=== PATIENT | female | born 1945 | race Two or more races ===

== ENCOUNTER 2016-12-13 23:10 | Inpatient (IN) | payer MEDICAID ==
[~2016-12-13] VITALS: Ht 152.4 cm; Wt 122.1 kg
[2016-12-13] MEDS ORDERED: cloNIDine HCL 0.1 MG TAB PO ONE (23:30)
[2016-12-13 23:42] LABS: DEFINITIVE SEE PRINTOUT; Hematocrit 43.5 % (36.0-46.0); Hemoglobin 14.2 g/dL (12.2-16.2); Mean Corpuscular Hemoglobin 30.4 pg (28.0-32.0); Mean Corpuscular Hgb Conc. 32.6 g/dL (32.0-36.0); Mean Corpuscular Volume 93.2 fL (80.0-100.0); Mean Platelet Volume 7.7 fL (7.4-10.4); Platelet Count (auto) 263 10^3/uL (140-450); Red Cell Distribution Width 14.5 % (11.6-16.0); SUSPECT SEE PRINTOUT; White Blood Cell 17.6 10^3/uL (4.4-10.8)
[2016-12-14] LABS: Reactive Lymphocytes 0
[2016-12-14 00:03] LABS: INR 1.23 (0.9-1.15); Partial Thromboplastin Time 31.5 sec (22.64-33.71)
[2016-12-14 00:04] LABS: Albumin 3.3 g/dL (3.4-5.0); Anion Gap 11 (5-15); Aspartate Aminotransferase 27 U/L (15-37); BUN/Creatinine Ratio 18.3; Blood Urea Nitrogen 28 mg/dL (7-18); Calcium 8.5 mg/dL (8.5-10.1); Carbon Dioxide 21 mmol/L (21-32); Chloride 107 mmol/L (98-107); GFR African American 43 mL/min; GFR Non-African American 36 mL/min; Glucose 147 mg/dL (74-106); Magnesium 1.8 mg/dL (1.6-2.6); Potassium 4.1 mmol/L (3.5-5.1); Sodium 139 mmol/L (136-145)
[2016-12-14 00:09] LABS: Alkaline Phosphatase 105 U/L (45-117); Bilirubin, Total 0.5 mg/dL (0.2-1.0); Total Protein 8.1 g/dL (6.4-8.2)
[2016-12-14 00:11] LABS: Prothrombin Time 13.4 sec (9.37-12.3)
[2016-12-14 00:46] LABS: Metamyelocytes % 7; Myelocytes % 6; Platelet Estimate Adequate; Promyelocytes % 1; RBC Morphology Normal
[2016-12-14 05:59] LABS: Urine Bilirubin Negative (Negative); Urine Blood TRACE /uL (Negative); Urine Color Yellow (Yellow); Urine Glucose Normal (Normal); Urine Granular Cast FEW /lpf (0); Urine Hyaline Cast FEW /lpf (0 - 2); Urine Ketone Negative (Negative); Urine Mucus FEW (None Seen); Urine Nitrite Negative (Negative); Urine RBC 2 /hpf (0 - 4); Urine Squamous Epithelial Cell MOD /hpf (<5); Urine Urobilinogen Normal (Negative)
[2016-12-14] MEDS ORDERED: SODIUM CHLORIDE 0.9% 1,000 ML IV ONE ×2 (06:39)
[2016-12-14] MEDS ORDERED: ACETAMINOPHEN 325 MG TAB PO ONE (06:45)
[2016-12-14] MEDS ORDERED: LEVOFLOXACIN 500MG 100 ML IV ONE (06:45)
[2016-12-14] MEDS: SODIUM CHLORIDE 0.9% 1,000 ML IV SCH ×2 (08:30→21:00)
[2016-12-14] MEDS ORDERED: ACETAMINOPHEN 500 MG TAB PO PRN (09:15)
[2016-12-14] MEDS ORDERED: amLODIPine BESYLATE 5 MG TAB PO ONE (09:15)
[2016-12-14] MEDS ORDERED: PROMETHAZINE HCL 25 MG/ML 1ML IV PRN (09:15)
[2016-12-14] MEDS ORDERED: HYDROcodone-ACET 5/325MG TAB PO PRN (09:15)
[2016-12-14] MEDS ORDERED: TEMAZEPAM 15 MG CAP PO PRN (09:15)
[2016-12-14] MEDS ORDERED: DEXTROSE (50%) 50ML SYRG IV PRN (09:15)
[2016-12-14] MEDS ORDERED: cefTRIAXone 1GM/50ML D5W 50 ML IV ONE (09:15)
[2016-12-14] MEDS ORDERED: MORPHINE SULF INJ 2 MG/ML SYRINGE 1ML IV PRN ×2 (09:15)
[2016-12-14] MEDS ORDERED: LABETALOL HCL 5 MG/ML 4ML SYRINGE IV PRN ×2 (09:15)
[2016-12-14] MEDS ORDERED: NITROGLYCERIN 0.4 MG SL TAB SL PRN (09:15)
[2016-12-14] MEDS: ENALAPRIL MALEATE 2.5 MG TAB PO SCH ×2 (10:00→22:16)
[2016-12-14] MEDS: PANTOPRAZOLE 40 MG TAB PO SCH (10:00)
[2016-12-14] MEDS: amLODIPine BESYLATE 5 MG TAB PO SCH (10:00)
[2016-12-14] MEDS: ACCU-CHEK COMFORT CURVE STRIP VI SCH ×3 (11:38→22:16)
[2016-12-14] MEDS: InsuLIN REG 1unit/0.01ml Soln (100units/ml) SC SCH ×3 (11:43→22:24)
[2016-12-14] MEDS ORDERED: METO-291 PO (16:34)
[2016-12-14] MEDS ORDERED: RIV20T PO (16:34)
[2016-12-14] MEDS ORDERED: LOSA100T27 PO (16:34)
[2016-12-14] MEDS ORDERED: CHLO50TA PO (16:34)
[2016-12-14] MEDS ORDERED: GABA-497 PO (16:34)
[2016-12-14] MEDS ORDERED: ATOR1TAB PO (16:34)
[2016-12-14] MEDS ORDERED: MELO-85 PO (19:37)
[2016-12-14 20:00] VITALS: BP 113/55
[2016-12-14 22:00] VITALS: BP 113/55
[2016-12-15] VITALS (8 sets, daily range): BP systolic 116–171; BP diastolic 68–86
[2016-12-15] MEDS: ACCU-CHEK COMFORT CURVE STRIP VI SCH ×4 (06:26→22:06)
[2016-12-15] MEDS: InsuLIN REG 1unit/0.01ml Soln (100units/ml) SC SCH ×4 (06:31→22:08)
[2016-12-15] MEDS: SODIUM CHLORIDE 0.9% 1,000 ML IV SCH ×2 (06:53→15:05)
[2016-12-15 07:00] LABS: CONDITION Y; DEFINITIVE SEE PRINTOUT; Hematocrit 34.8 % (36.0-46.0); Hemoglobin 11.6 g/dL (12.2-16.2); Mean Corpuscular Hemoglobin 31.5 pg (28.0-32.0); Mean Corpuscular Hgb Conc. 33.3 g/dL (32.0-36.0); Mean Corpuscular Volume 94.6 fL (80.0-100.0); Mean Platelet Volume 8.5 fL (7.4-10.4); Platelet Count (auto) 259 10^3/uL (140-450); Red Cell Distribution Width 16.3 % (11.6-16.0); White Blood Cell 10.3 10^3/uL (4.4-10.8)
[2016-12-15 07:10] LABS: Metamyelocytes % 0; Myelocytes % 0; Promyelocytes % 0; Reactive Lymphocytes 0
[2016-12-15 07:18] LABS: Albumin 2.6 g/dL (3.4-5.0); BUN/Creatinine Ratio 21.2; Bilirubin, Total 0.5 mg/dL (0.2-1.0); Calcium 8.2 mg/dL (8.5-10.1); Potassium 4.1 mmol/L (3.5-5.1); Total Protein 6.4 g/dL (6.4-8.2)
[2016-12-15 07:36] LABS: Platelet Estimate Adequate; RBC Morphology Normal
[2016-12-15] MEDS: cefTRIAXone 1GM/50ML D5W 50 ML IV SCH (09:00)
[2016-12-15] MEDS: ENALAPRIL MALEATE 2.5 MG TAB PO SCH ×2 (09:36→21:57)
[2016-12-15] MEDS: PANTOPRAZOLE 40 MG TAB PO SCH (09:36)
[2016-12-15] MEDS: amLODIPine BESYLATE 5 MG TAB PO SCH (09:38)
[2016-12-16] MEDS: SODIUM CHLORIDE 0.9% 1,000 ML IV SCH ×3 (04:13→21:05)
[2016-12-16 05:44] LABS: Basophils # (auto) 0 uL; Basophils % (auto) 0.5 % (0.0-2.0); CONDITION Y; DEFINITIVE SEE PRINTOUT; Eosinophils % (auto) 12.7 % (0.0-7.0); Hematocrit 38.1 % (36.0-46.0); Hemoglobin 12.7 g/dL (12.2-16.2); Lymphocytes # (auto) 0.7 uL; Lymphocytes % (auto) 8.7 % (10.0-50.0); Mean Corpuscular Hemoglobin 31.3 pg (28.0-32.0); Mean Corpuscular Hgb Conc. 33.4 g/dL (32.0-36.0); Mean Corpuscular Volume 93.7 fL (80.0-100.0); Mean Platelet Volume 8.4 fL (7.4-10.4); Monocytes # (auto) 0.7 uL; Monocytes % (auto) 8.5 % (0.0-12.0); Neutrophils # (auto) 5.5 uL; Neutrophils % (auto) 69.6 % (37.0-80.0); Platelet Count (auto) 284 10^3/uL (140-450); White Blood Cell 7.9 10^3/uL (4.4-10.8)
[2016-12-16 06:14] LABS: Albumin 3.1 g/dL (3.4-5.0); BUN/Creatinine Ratio 16.1; Calcium 8.4 mg/dL (8.5-10.1)
[2016-12-16 06:17] LABS: Bilirubin, Total 0.6 mg/dL (0.2-1.0); Total Protein 7.3 g/dL (6.4-8.2)
[2016-12-16] MEDS: LABETALOL HCL 5 MG/ML 4ML SYRINGE IV PRN ×2 (06:21→12:00)
[2016-12-16] MEDS: ACCU-CHEK COMFORT CURVE STRIP VI SCH ×4 (06:31→22:10)
[2016-12-16] MEDS: InsuLIN REG 1unit/0.01ml Soln (100units/ml) SC SCH ×4 (06:33→22:10)
[2016-12-16 08:00] VITALS: BP 136/86
[2016-12-16] MEDS: cefTRIAXone 1GM/50ML D5W 50 ML IV SCH (09:10)
[2016-12-16] MEDS: LORazepam 0.5 MG TAB PO PRN ×2 (09:15→22:09)
[2016-12-16 10:04] VITALS: BP 136/86
[2016-12-16] MEDS: CITALOPRAM HYDROBR 20 MG TAB PO SCH (10:31)
[2016-12-16] MEDS: PANTOPRAZOLE 40 MG TAB PO SCH (10:32)
[2016-12-16] MEDS: amLODIPine BESYLATE 5 MG TAB PO SCH (10:32)
[2016-12-16] MEDS: ENALAPRIL MALEATE 2.5 MG TAB PO SCH ×2 (10:33→22:10)
[2016-12-16 14:37] VITALS: BP 195/101
[2016-12-16 17:28] VITALS: BP 149/78
[2016-12-16 20:00] VITALS: BP 150/82
[2016-12-16 22:00] VITALS: BP 154/82
[2016-12-17 05:26] VITALS: BP 161/73
[2016-12-17 05:57] LABS: BUN/Creatinine Ratio 13.2; Calcium 8.9 mg/dL (8.5-10.1)
[2016-12-17] MEDS: ACCU-CHEK COMFORT CURVE STRIP VI SCH ×2 (06:46→11:30)
[2016-12-17] MEDS: InsuLIN REG 1unit/0.01ml Soln (100units/ml) SC SCH ×2 (06:47→11:30)
[2016-12-17] MEDS: SODIUM CHLORIDE 0.9% 1,000 ML IV SCH (07:05)
[2016-12-17 08:00] VITALS: BP 139/67
[2016-12-17 08:24] VITALS: BP 139/68
[2016-12-17] MEDS: cefTRIAXone 1GM/50ML D5W 50 ML IV SCH (08:51)
[2016-12-17] MEDS: ENALAPRIL MALEATE 2.5 MG TAB PO SCH (10:13)
[2016-12-17] MEDS: PANTOPRAZOLE 40 MG TAB PO SCH (10:14)
[2016-12-17] MEDS: amLODIPine BESYLATE 5 MG TAB PO SCH (10:14)
[2016-12-17] MEDS: CITALOPRAM HYDROBR 20 MG TAB PO SCH (10:17)
[2016-12-17 11:00] VITALS: BP 139/68
== END 2016-12-17 12:00 | disposition home or self-care (01) | DRG 720 ==
LOC: EDBD 23:10 → ER 23:10 → TELE 23:11 → EAST 12-14 15:24 → TELE-WESTW 12-14 18:52
PROVIDERS: ADMIT Internal Medicine; ATTEND Internal Medicine
DX: A41.9 Sepsis, unspecified organism (principal); N17.9 Acute kidney failure, unspecified; D68.9 Coagulation defect, unspecified; E11.21 Type 2 diabetes mellitus with diabetic nephropathy; N18.3 Chronic kidney disease, stage 3 (moderate); E44.0 Moderate protein-calorie malnutrition; N39.0 Urinary tract infection, site not specified; I12.9 Hypertensive chronic kidney disease with stage 1 through stage 4 chronic kidney disease, or unspecified chronic kidney disease; E78.5 Hyperlipidemia, unspecified; K29.50 Unspecified chronic gastritis without bleeding; E66.01 Morbid (severe) obesity due to excess calories; M19.90 Unspecified osteoarthritis, unspecified site; I16.0 Hypertensive urgency; N28.1 Cyst of kidney, acquired; E11.22 Type 2 diabetes mellitus with diabetic chronic kidney disease; F32.9 Major depressive disorder, single episode, unspecified; E11.40 Type 2 diabetes mellitus with diabetic neuropathy, unspecified; Z83.3 Family history of diabetes mellitus; Z98.51 Tubal ligation status; Z68.43 Body mass index [BMI] 50.0-59.9, adult
CPT/HCPCS: 36415; 71010; 74176; 76775; 80048; 80053; 81001; 82962; 83036; 83605; 83735; 84484; 85007; 85025; 85027; 85610; 85652; 85730; 87040; 87086; 93005; 96365; 96366; 96375; J0696; J1815; J1956; J3490

== ENCOUNTER 2021-08-25 11:50 | Inpatient (IN) | payer MEDICAID ==
[~2021-08-25] VITALS: Ht 121.9 cm; Wt 120.9 kg
[~2021-08-25 11:50] MED LIST: ATOR-47 PO; CHLO50TA PO; GABA300C10 PO; LOSA-39 PO; MELO1TAB73 PO; METO1TAB9 PO; RIV20T PO
[2021-08-25] MEDS ORDERED: FUROSEMIDE 40 MG/4 ML VIAL IV ONE (12:15)
[2021-08-25] MEDS ORDERED: FURO40TA4 PO (12:42)
[2021-08-25] MEDS ORDERED: AMLO-489 PO (12:42)
[2021-08-25] MEDS ORDERED: HYDR25TA4 PO (12:42)
[2021-08-25] MEDS ORDERED: DOXA1TAB42 PO (12:42)
[2021-08-25 13:32] LABS: Basophils # (auto) 0.1 10 ^3/uL (0-0.2); Basophils % (auto) 1.7 % (0.0-2.0); Eosinophils # (auto) 0.1 10 ^3/uL (0-0.8); Eosinophils % (auto) 2.3 % (0.0-7.0); Hematocrit 38.4 % (36.0-46.0); Hemoglobin 12.8 g/dL (12.2-16.2); Lymphocytes # (auto) 0.7 10 ^3/uL (0.4-5.4); Lymphocytes % (auto) 10.5 % (10.0-50.0); Mean Corpuscular Hemoglobin 31.9 pg (28.0-32.0); Mean Corpuscular Hgb Conc. 33.4 g/dL (32.0-36.0); Mean Corpuscular Volume 95.6 fL (80.0-100.0); Monocytes # (auto) 0.5 10 ^3/uL (0-1.3); Monocytes % (auto) 7.6 % (0.0-12.0); Neutrophils # (auto) 5.1 10 ^3/uL (1.6-8.6); Neutrophils % (auto) 77.9 % (37.0-80.0); Nucleated Red Blood Cells % 0.1 %; Red Blood Cells 4.02 10^6/uL (4.0-5.20); Red Cell Distribution Width 14.8 % (11.8-14.3); White Blood Cell 6.5 10^3/uL (4.4-10.8)
[2021-08-25 13:47] LABS: INR 0.98 (0.9-1.15); Partial Thromboplastin Time 22.7 sec (23.6-33.0)
[2021-08-25 13:52] LABS: Albumin 2.7 g/dL (3.4-5.0); Calcium 8.5 mg/dL (8.5-10.1); Potassium 4.1 mmol/L (3.5-5.1)
[2021-08-25 13:59] LABS: BUN/Creatinine Ratio 22.7; Bilirubin, Total 0.3 mg/dL (0.2-1.0)
[2021-08-25] MEDS ORDERED: DOCUSATE SOD 100 MG CAP PO PRN (16:30)
[2021-08-25] MEDS ORDERED: DEXTROSE (50%) 50ML SYRG IV PRN (16:30)
[2021-08-25] MEDS ORDERED: ACETAMINOPHEN 325 MG TAB PO PRN (16:30)
[2021-08-25] MEDS ORDERED: MORPHINE SULFATE INJECTION 2 MG/ML SYRG IV PRN (16:30)
[2021-08-25] MEDS ORDERED: ONDANSETRON HCL 4 MG/2 ML VIAL IV PRN (16:30)
[2021-08-25] MEDS ORDERED: NITROGLYCERIN 0.4 MG SL TAB SL PRN (16:30)
[2021-08-25] MEDS: InsuLIN REG 1unit/0.01ml Soln (100units/ml) SC SCH ×2 (17:00→21:15)
[2021-08-25] MEDS: ACCU-CHEK COMFORT CURVE STRIP VI SCH ×2 (17:21→21:13)
[2021-08-25] MEDS: RIVAROXABAN 20 MG TAB PO SCH (18:53)
[2021-08-25] MEDS: FUROSEMIDE 40 MG TAB PO SCH (18:53)
[2021-08-25] MEDS: HYDROcodone-ACET 5/325MG TAB PO PRN (19:49)
[2021-08-25] MEDS: TEMAZEPAM 15 MG CAP PO PRN (21:12)
[2021-08-25] MEDS: ATORVASTATIN 20 MG TAB PO SCH (21:12)
[2021-08-25] MEDS: DOXAZOSIN MESYL 2 MG TAB PO SCH (21:25)
[2021-08-25 22:00] VITALS: BP 117/57
[2021-08-25 22:18] LABS: Urine Bacteria NONE SEEN /hpf (None Seen); Urine Blood 1+ /uL (Negative); Urine Specific Gravity 1.007 (1.001-1.035); Urine WBC 1 /hpf (0 - 5)
[2021-08-26 05:00] VITALS: BP 110/57
[2021-08-26 06:01] LABS: Basophils # (auto) 0.1 10 ^3/uL (0-0.2); Basophils % (auto) 0.9 % (0.0-2.0); Eosinophils # (auto) 0.2 10 ^3/uL (0-0.8); Eosinophils % (auto) 3.5 % (0.0-7.0); Hematocrit 33.5 % (36.0-46.0); Hemoglobin 11.7 g/dL (12.2-16.2); Lymphocytes # (auto) 0.6 10 ^3/uL (0.4-5.4); Lymphocytes % (auto) 9.3 % (10.0-50.0); Mean Corpuscular Hemoglobin 32.9 pg (28.0-32.0); Mean Corpuscular Hgb Conc. 34.8 g/dL (32.0-36.0); Mean Corpuscular Volume 94.5 fL (80.0-100.0); Monocytes # (auto) 0.7 10 ^3/uL (0-1.3); Monocytes % (auto) 10.1 % (0.0-12.0); Neutrophils % (auto) 76.2 % (37.0-80.0); Red Blood Cells 3.55 10^6/uL (4.0-5.20); Red Cell Distribution Width 14.5 % (11.8-14.3); White Blood Cell 6.6 10^3/uL (4.4-10.8)
[2021-08-26] MEDS: FUROSEMIDE 40 MG TAB PO SCH ×2 (06:07→17:38)
[2021-08-26] MEDS: ACCU-CHEK COMFORT CURVE STRIP VI SCH ×4 (06:14→21:57)
[2021-08-26] MEDS: InsuLIN REG 1unit/0.01ml Soln (100units/ml) SC SCH ×4 (06:15→21:52)
[2021-08-26 06:18] LABS: Potassium 3.7 mmol/L (3.5-5.1)
[2021-08-26 06:22] LABS: Cholesterol 211 mg/dL (< 200); HDL Cholesterol 51 mg/dL (40-59); LDL Cholesterol 128 mg/dL (< 100); Triglycerides 207 mg/dL (< 150)
[2021-08-26 06:33] LABS: Albumin 2.8 g/dL (3.4-5.0); Bilirubin, Total 0.5 mg/dL (0.2-1.0); Calcium 9.1 mg/dL (8.5-10.1); Total Protein 5.9 g/dL (6.4-8.2)
[2021-08-26 08:05] VITALS: BP 116/47
[2021-08-26] MEDS: GABAPENTIN 300 MG CAP PO SCH (09:20)
[2021-08-26] MEDS: METOPROLOL SUCCINATE XL 50 MG TAB PO SCH (09:20)
[2021-08-26] MEDS: LOSARTAN POTASSIUM 50 MG TAB PO SCH (09:20)
[2021-08-26] MEDS: MORPHINE SULFATE 4 MG/ML SYR/VIAL IV PRN (09:21)
[2021-08-26] MEDS: amLODIPine BESYLATE 5 MG TAB PO SCH (09:21)
[2021-08-26] MEDS ORDERED: ENOXAPARIN SOD 40 MG/0.4 ML SYRINGE SC SCH (10:00)
[2021-08-26 12:05] VITALS: BP 113/41
[2021-08-26] MEDS ORDERED: PANTOPRAZOLE 40 MG TAB PO ONE ×2 (12:15→12:30)
[2021-08-26 16:10] VITALS: BP 111/40
[2021-08-26] MEDS: RIVAROXABAN 20 MG TAB PO SCH (17:39)
[2021-08-26] MEDS: ATORVASTATIN 20 MG TAB PO SCH (21:52)
[2021-08-26] MEDS: DOXAZOSIN MESYL 2 MG TAB PO SCH (21:52)
[2021-08-26 22:00] VITALS: BP 107/46
[2021-08-26] MEDS: TEMAZEPAM 15 MG CAP PO PRN (22:05)
[2021-08-27 04:34] VITALS: BP 119/57
[2021-08-27] MEDS: ACCU-CHEK COMFORT CURVE STRIP VI SCH ×4 (06:37→22:00)
[2021-08-27] MEDS: FUROSEMIDE 40 MG TAB PO SCH ×2 (06:37→16:45)
[2021-08-27] MEDS: InsuLIN REG 1unit/0.01ml Soln (100units/ml) SC SCH ×4 (06:45→21:52)
[2021-08-27] MEDS: MORPHINE SULFATE 4 MG/ML SYR/VIAL IV PRN (06:55)
[2021-08-27 09:00] VITALS: BP 116/67
[2021-08-27] MEDS: PANTOPRAZOLE 40 MG TAB PO SCH (09:52)
[2021-08-27] MEDS: METOPROLOL SUCCINATE XL 50 MG TAB PO SCH (09:53)
[2021-08-27] MEDS: GABAPENTIN 300 MG CAP PO SCH (09:55)
[2021-08-27] MEDS: amLODIPine BESYLATE 5 MG TAB PO SCH (09:57)
[2021-08-27] MEDS: LOSARTAN POTASSIUM 50 MG TAB PO SCH (09:58)
[2021-08-27] MEDS ORDERED: PANTOPRAZOLE 40 MG TAB PO SCH (10:00)
[2021-08-27 12:47] VITALS: BP 95/43
[2021-08-27] MEDS: RIVAROXABAN 20 MG TAB PO SCH (16:45)
[2021-08-27] MEDS: HYDROcodone-ACET 5/325MG TAB PO PRN (16:51)
[2021-08-27 17:00] VITALS: BP 97/53
[2021-08-27] MEDS: ATORVASTATIN 20 MG TAB PO SCH (21:51)
[2021-08-27] MEDS: DOXAZOSIN MESYL 2 MG TAB PO SCH ×2 (21:51→22:00)
[2021-08-27 22:00] VITALS: BP 97/42
[2021-08-28 04:47] VITALS: BP 91/51
[2021-08-28] MEDS: FUROSEMIDE 40 MG TAB PO SCH ×2 (06:00→16:52)
[2021-08-28] MEDS: ACCU-CHEK COMFORT CURVE STRIP VI SCH ×4 (06:18→21:34)
[2021-08-28] MEDS: InsuLIN REG 1unit/0.01ml Soln (100units/ml) SC SCH ×4 (06:38→22:30)
[2021-08-28] MEDS: GABAPENTIN 300 MG CAP PO SCH (08:57)
[2021-08-28] MEDS: PANTOPRAZOLE 40 MG TAB PO SCH (08:57)
[2021-08-28 09:00] VITALS: BP 130/63
[2021-08-28] MEDS: HYDROcodone-ACET 5/325MG TAB PO PRN ×2 (09:02→15:20)
[2021-08-28] MEDS: amLODIPine BESYLATE 5 MG TAB PO SCH (09:33)
[2021-08-28] MEDS: LOSARTAN POTASSIUM 50 MG TAB PO SCH (09:33)
[2021-08-28] MEDS: METOPROLOL SUCCINATE XL 50 MG TAB PO SCH (09:34)
[2021-08-28 13:00] VITALS: BP 100/38
[2021-08-28 14:31] LABS: Basophils # (auto) 0.1 10 ^3/uL (0-0.2); Basophils % (auto) 0.6 % (0.0-2.0); Eosinophils # (auto) 0.3 10 ^3/uL (0-0.8); Eosinophils % (auto) 2.6 % (0.0-7.0); Hematocrit 33.2 % (36.0-46.0); Hemoglobin 11.4 g/dL (12.2-16.2); Lymphocytes # (auto) 0.7 10 ^3/uL (0.4-5.4); Lymphocytes % (auto) 6.4 % (10.0-50.0); Mean Corpuscular Hgb Conc. 34.3 g/dL (32.0-36.0); Mean Corpuscular Volume 96.2 fL (80.0-100.0); Monocytes % (auto) 9.1 % (0.0-12.0); Neutrophils # (auto) 8.8 10 ^3/uL (1.6-8.6); Neutrophils % (auto) 81.3 % (37.0-80.0); Red Blood Cells 3.45 10^6/uL (4.0-5.20); Red Cell Distribution Width 14.6 % (11.8-14.3); White Blood Cell 10.9 10^3/uL (4.4-10.8)
[2021-08-28 14:52] LABS: Albumin 2.6 g/dL (3.4-5.0); BUN/Creatinine Ratio 20.9; Calcium 8.2 mg/dL (8.5-10.1); Magnesium 1.9 mg/dL (1.6-2.6); Potassium 4.4 mmol/L (3.5-5.1)
[2021-08-28 14:55] LABS: Bilirubin, Total 0.6 mg/dL (0.2-1.0); Total Protein 5.7 g/dL (6.4-8.2)
[2021-08-28] MEDS: ENOXAPARIN SOD 120 MG/0.8 ML SYRINGE SC SCH (16:53)
[2021-08-28 17:00] VITALS: BP 97/52
[2021-08-28] MEDS: ATORVASTATIN 20 MG TAB PO SCH (22:13)
[2021-08-28 22:23] VITALS: BP 87/41
[2021-08-28] MEDS: DOXAZOSIN MESYL 2 MG TAB PO SCH (22:30)
[2021-08-29 04:56] VITALS: BP 97/52
[2021-08-29] MEDS: FUROSEMIDE 40 MG TAB PO SCH ×2 (05:56→17:56)
[2021-08-29] MEDS: ACCU-CHEK COMFORT CURVE STRIP VI SCH ×4 (05:57→21:44)
[2021-08-29] MEDS: InsuLIN REG 1unit/0.01ml Soln (100units/ml) SC SCH ×4 (06:18→22:16)
[2021-08-29 08:45] VITALS: BP 113/68
[2021-08-29] MEDS: PANTOPRAZOLE 40 MG TAB PO SCH (09:54)
[2021-08-29] MEDS: GABAPENTIN 300 MG CAP PO SCH (09:54)
[2021-08-29] MEDS: cefTRIAXone 1GM/50ML D5W 50 ML IV SCH (09:54)
[2021-08-29] MEDS: amLODIPine BESYLATE 5 MG TAB PO SCH (09:55)
[2021-08-29] MEDS: METOPROLOL SUCCINATE XL 50 MG TAB PO SCH (09:55)
[2021-08-29 12:00] VITALS: BP 98/49
[2021-08-29] MEDS: HYDROcodone-ACET 5/325MG TAB PO PRN (15:55)
[2021-08-29 16:00] VITALS: BP 109/55
[2021-08-29] MEDS: ENOXAPARIN SOD 120 MG/0.8 ML SYRINGE SC SCH (17:56)
[2021-08-29 19:18] LABS: Alanine Aminotransferase 27 U/L (13-56); Albumin 2.6 g/dL (3.4-5.0); Alkaline Phosphatase 70 U/L (45-117); Anion Gap 7 (5-15); Aspartate Aminotransferase 20 U/L (15-37); BUN/Creatinine Ratio 22.9; Bilirubin, Total 0.4 mg/dL (0.2-1.0); Blood Urea Nitrogen 62 mg/dL (7-18); Calcium 8.4 mg/dL (8.5-10.1); Carbon Dioxide 28 mmol/L (21-32); Chloride 102 mmol/L (98-107); GFR African American 22 mL/min; GFR Non-African American 18 mL/min; Glucose 253 mg/dL (74-106); Potassium 4.7 mmol/L (3.5-5.1); Sodium 137 mmol/L (136-145); Total Protein 6.4 g/dL (6.4-8.2)
[2021-08-29 22:00] VITALS: BP 86/50
[2021-08-29] MEDS: ATORVASTATIN 20 MG TAB PO SCH (22:10)
[2021-08-29] MEDS: TEMAZEPAM 15 MG CAP PO PRN (23:10)
[2021-08-30 05:00] VITALS: BP 102/57
[2021-08-30 05:57] LABS: Basophils # (auto) 0 10 ^3/uL (0-0.2); Basophils % (auto) 0.5 % (0.0-2.0); Eosinophils # (auto) 0.3 10 ^3/uL (0-0.8); Hematocrit 31.4 % (36.0-46.0); Hemoglobin 10.8 g/dL (12.2-16.2); Lymphocytes # (auto) 0.7 10 ^3/uL (0.4-5.4); Mean Corpuscular Hemoglobin 32.8 pg (28.0-32.0); Mean Corpuscular Hgb Conc. 34.5 g/dL (32.0-36.0); Mean Corpuscular Volume 95.1 fL (80.0-100.0); Monocytes # (auto) 0.8 10 ^3/uL (0-1.3); Neutrophils # (auto) 6.2 10 ^3/uL (1.6-8.6); Neutrophils % (auto) 76.5 % (37.0-80.0); Nucleated Red Blood Cells % 0.1 %; Red Blood Cells 3.31 10^6/uL (4.0-5.20); Red Cell Distribution Width 14.7 % (11.8-14.3); White Blood Cell 8.1 10^3/uL (4.4-10.8)
[2021-08-30] MEDS: FUROSEMIDE 40 MG TAB PO SCH ×2 (06:00→18:05)
[2021-08-30] MEDS: ACCU-CHEK COMFORT CURVE STRIP VI SCH ×4 (06:09→22:43)
[2021-08-30 06:10] LABS: BUN/Creatinine Ratio 25.8; Calcium 8.6 mg/dL (8.5-10.1); Potassium 4.6 mmol/L (3.5-5.1)
[2021-08-30] MEDS: InsuLIN REG 1unit/0.01ml Soln (100units/ml) SC SCH ×4 (06:32→22:42)
[2021-08-30] MEDS: cefTRIAXone 1GM/50ML D5W 50 ML IV SCH (08:19)
[2021-08-30] MEDS: GABAPENTIN 300 MG CAP PO SCH (08:19)
[2021-08-30] MEDS: PANTOPRAZOLE 40 MG TAB PO SCH (08:19)
[2021-08-30 09:00] VITALS: BP 116/47
[2021-08-30] MEDS: amLODIPine BESYLATE 5 MG TAB PO SCH (10:00)
[2021-08-30] MEDS: METOPROLOL SUCCINATE XL 50 MG TAB PO SCH (10:00)
[2021-08-30] MEDS: HYDROcodone-ACET 5/325MG TAB PO PRN (12:34)
[2021-08-30 13:00] VITALS: BP 118/63
[2021-08-30 17:00] VITALS: BP 91/47
[2021-08-30 22:00] VITALS: BP 111/64
[2021-08-30] MEDS: DOXAZOSIN MESYL 2 MG TAB PO SCH (22:40)
[2021-08-30] MEDS: APIXABAN 5 MG TAB PO SCH (22:41)
[2021-08-30] MEDS: ATORVASTATIN 20 MG TAB PO SCH (22:41)
[2021-08-31 05:00] VITALS: BP 111/59
[2021-08-31] MEDS: FUROSEMIDE 40 MG TAB PO SCH ×2 (05:18→16:52)
[2021-08-31] MEDS: ACCU-CHEK COMFORT CURVE STRIP VI SCH ×4 (06:18→22:26)
[2021-08-31] MEDS: InsuLIN REG 1unit/0.01ml Soln (100units/ml) SC SCH ×4 (06:26→22:27)
[2021-08-31 08:44] VITALS: BP 116/57
[2021-08-31] MEDS: cefTRIAXone 1GM/50ML D5W 50 ML IV SCH (09:50)
[2021-08-31] MEDS: APIXABAN 5 MG TAB PO SCH ×2 (09:56→22:26)
[2021-08-31] MEDS: PANTOPRAZOLE 40 MG TAB PO SCH (09:56)
[2021-08-31] MEDS: amLODIPine BESYLATE 5 MG TAB PO SCH (09:57)
[2021-08-31] MEDS: GABAPENTIN 300 MG CAP PO SCH (09:57)
[2021-08-31] MEDS: METOPROLOL SUCCINATE XL 50 MG TAB PO SCH (09:58)
[2021-08-31 13:00] VITALS: BP 127/59
[2021-08-31] MEDS: SODIUM CHLORIDE 0.9% 1,000 ML IV SCH ×2 (14:15→16:38)
[2021-08-31] MEDS: HYDROcodone-ACET 5/325MG TAB PO PRN (16:52)
[2021-08-31 17:05] VITALS: BP 100/41
[2021-08-31 22:00] VITALS: BP 113/49
[2021-08-31] MEDS: DOXAZOSIN MESYL 2 MG TAB PO SCH (22:25)
[2021-08-31] MEDS: ATORVASTATIN 20 MG TAB PO SCH (22:26)
[2021-08-31] MEDS: TEMAZEPAM 15 MG CAP PO PRN (22:28)
[2021-09-01 05:00] VITALS: BP 111/47
[2021-09-01 05:42] LABS: Albumin 2.5 g/dL (3.4-5.0); Calcium 8.9 mg/dL (8.5-10.1); Potassium 4.5 mmol/L (3.5-5.1)
[2021-09-01 05:45] LABS: BUN/Creatinine Ratio 32.7
[2021-09-01 05:48] LABS: Bilirubin, Total 0.3 mg/dL (0.2-1.0)
[2021-09-01 06:47] LABS: Hematocrit 33.7 % (36.0-46.0); Hemoglobin 11.5 g/dL (12.2-16.2); Mean Corpuscular Hemoglobin 32.5 pg (28.0-32.0); Mean Corpuscular Hgb Conc. 34.1 g/dL (32.0-36.0); Mean Corpuscular Volume 95.2 fL (80.0-100.0); Red Blood Cells 3.54 10^6/uL (4.0-5.20); Red Cell Distribution Width 14.6 % (11.8-14.3); White Blood Cell 7.6 10^3/uL (4.4-10.8)
[2021-09-01 06:52] LABS: Basophils % (manual) 0 (0.0-2.0); Blast Cells 0; Metamyelocytes % 0; Promyelocytes % 0; Reactive Lymphocytes 0
[2021-09-01] MEDS: InsuLIN REG 1unit/0.01ml Soln (100units/ml) SC SCH ×4 (07:00→22:18)
[2021-09-01] MEDS: ACCU-CHEK COMFORT CURVE STRIP VI SCH ×4 (07:00→22:24)
[2021-09-01 07:26] LABS: Eosinophils % (manual) 6 (0-7)
[2021-09-01 07:30] LABS: Band Neutrophils % (manual) 37; Lymphocytes % (manual) 11 (10.0-50.0); Monocytes % (manual) 12 (0-12); Myelocytes % 2
[2021-09-01 09:00] VITALS: BP 108/36
[2021-09-01] MEDS: amLODIPine BESYLATE 5 MG TAB PO SCH (10:00)
[2021-09-01] MEDS: PANTOPRAZOLE 40 MG TAB PO SCH (10:44)
[2021-09-01] MEDS: cefTRIAXone 1GM/50ML D5W 50 ML IV SCH (10:44)
[2021-09-01] MEDS: GABAPENTIN 300 MG CAP PO SCH (10:49)
[2021-09-01] MEDS: METOPROLOL SUCCINATE XL 50 MG TAB PO SCH (10:49)
[2021-09-01] MEDS: APIXABAN 5 MG TAB PO SCH ×2 (10:50→22:13)
[2021-09-01] MEDS: HYDROcodone-ACET 5/325MG TAB PO PRN (10:54)
[2021-09-01 13:00] VITALS: BP 126/90
[2021-09-01 16:50] VITALS: BP 117/53
[2021-09-01] MEDS: DOXAZOSIN MESYL 2 MG TAB PO SCH (22:00)
[2021-09-01] MEDS: ATORVASTATIN 20 MG TAB PO SCH (22:13)
[2021-09-01] MEDS: TEMAZEPAM 15 MG CAP PO PRN (22:34)
[2021-09-02 06:00] VITALS: BP 105/49
[2021-09-02] MEDS: SODIUM CHLORIDE 0.9% 1,000 ML IV SCH (06:15)
[2021-09-02] MEDS: InsuLIN REG 1unit/0.01ml Soln (100units/ml) SC SCH ×4 (06:40→21:42)
[2021-09-02] MEDS: ACCU-CHEK COMFORT CURVE STRIP VI SCH ×4 (06:40→21:45)
[2021-09-02 09:08] VITALS: BP 100/66
[2021-09-02] MEDS: cefTRIAXone 1GM/50ML D5W 50 ML IV SCH (09:39)
[2021-09-02] MEDS: GABAPENTIN 300 MG CAP PO SCH (09:39)
[2021-09-02] MEDS: PANTOPRAZOLE 40 MG TAB PO SCH (09:39)
[2021-09-02] MEDS: APIXABAN 5 MG TAB PO SCH ×2 (09:39→21:37)
[2021-09-02] MEDS: amLODIPine BESYLATE 5 MG TAB PO SCH (09:40)
[2021-09-02] MEDS: METOPROLOL SUCCINATE XL 50 MG TAB PO SCH (09:40)
[2021-09-02 13:00] VITALS: BP 126/63
[2021-09-02 13:15] VITALS: BP 125/63
[2021-09-02 13:50] LABS: Potassium 4.6 mmol/L (3.5-5.1)
[2021-09-02 13:53] LABS: BUN/Creatinine Ratio 31.8
[2021-09-02 15:49] VITALS: BP 119/59
[2021-09-02] MEDS: ATORVASTATIN 20 MG TAB PO SCH (21:37)
[2021-09-02] MEDS: DOXAZOSIN MESYL 2 MG TAB PO SCH (21:48)
[2021-09-02 22:00] VITALS: BP 108/56
[2021-09-03 05:00] VITALS: BP 118/50
[2021-09-03] MEDS: InsuLIN REG 1unit/0.01ml Soln (100units/ml) SC SCH ×3 (06:39→16:46)
[2021-09-03] MEDS: ACCU-CHEK COMFORT CURVE STRIP VI SCH ×3 (06:40→16:44)
[2021-09-03 08:00] VITALS: BP 109/50
[2021-09-03 09:00] VITALS: BP 109/46
[2021-09-03] MEDS: PANTOPRAZOLE 40 MG TAB PO SCH (09:05)
[2021-09-03] MEDS: APIXABAN 5 MG TAB PO SCH (09:06)
[2021-09-03] MEDS: GABAPENTIN 300 MG CAP PO SCH (09:06)
[2021-09-03] MEDS: cefTRIAXone 1GM/50ML D5W 50 ML IV SCH (09:06)
[2021-09-03] MEDS: amLODIPine BESYLATE 5 MG TAB PO SCH (09:08)
[2021-09-03] MEDS: METOPROLOL SUCCINATE XL 50 MG TAB PO SCH (09:08)
[2021-09-03] MEDS: HYDROcodone-ACET 5/325MG TAB PO PRN ×2 (09:57→17:59)
[2021-09-03 11:18] LABS: Calcium 8.9 mg/dL (8.5-10.1); Potassium 4.1 mmol/L (3.5-5.1)
[2021-09-03 11:21] LABS: BUN/Creatinine Ratio 30.4
[2021-09-03 13:00] VITALS: BP 90/46
[2021-09-03] MEDS ORDERED: APIX5TAB PO (15:41)
[2021-09-03 17:00] VITALS: BP 115/47
[2021-09-03 17:11] VITALS: BP 119/70
== END 2021-09-03 18:00 | disposition home or self-care (01) | DRG 133 ==
LOC: ER 11:50 → TELE 16:19 → TELE-WESTW 18:30
PROVIDERS: ADMIT Nurse Practitioner; ATTEND Nurse Practitioner
DX: J96.21 Acute and chronic respiratory failure with hypoxia (principal); N17.0 Acute kidney failure with tubular necrosis; I50.33 Acute on chronic diastolic (congestive) heart failure; E44.0 Moderate protein-calorie malnutrition; I27.20 Pulmonary hypertension, unspecified; J44.1 Chronic obstructive pulmonary disease with (acute) exacerbation; Z68.43 Body mass index [BMI] 50.0-59.9, adult; N18.31 Chronic kidney disease, stage 3a; E11.65 Type 2 diabetes mellitus with hyperglycemia; E66.01 Morbid (severe) obesity due to excess calories; I13.0 Hypertensive heart and chronic kidney disease with heart failure and stage 1 through stage 4 chronic kidney disease, or unspecified chronic kidney disease; E11.22 Type 2 diabetes mellitus with diabetic chronic kidney disease; Z20.822 Contact with and (suspected) exposure to COVID-19; E11.40 Type 2 diabetes mellitus with diabetic neuropathy, unspecified; E78.5 Hyperlipidemia, unspecified; J98.11 Atelectasis; M19.90 Unspecified osteoarthritis, unspecified site; Z79.4 Long term (current) use of insulin; Z82.49 Family history of ischemic heart disease and other diseases of the circulatory system; Z83.3 Family history of diabetes mellitus; Z91.14 Patient's other noncompliance with medication regimen; Z98.51 Tubal ligation status; Z99.81 Dependence on supplemental oxygen
CPT/HCPCS: 36415; 71045; 71250; 78582; 80048; 80053; 80061; 81001; 82962; 83735; 83880; 84484; 85007; 85025; 85027; 85379; 85610; 85730; 87040; 93005; 93306; 96374; 99291; G0378; J0696; J1815